=== PATIENT | female | born 1965 | race American Indian/Alaskan Native ===

== ENCOUNTER 2017-05-03 07:44 | Emergency (ER) | payer MEDICAID ==
[2017-05-03 08:32] LABS: Hematocrit 42.5 % (30.3-42.9); Hemoglobin 14.3 gm/dl (10.1-14.3); Mean Corpuscular HGB Conc 34 % (30-34); Mean Corpuscular Hemoglobin 33 pg (28-32); Mean Corpuscular Volume 99 fl (79-97); Platelet Count 161 K/mm3 (140-440); Red Blood Count 4.29 M/mm3 (3.65-5.03); Red Cell Distribution Width 15.6 % (13.2-15.2); White Blood Count 7.5 K/mm3 (4.5-11.0)
[2017-05-03 08:42] LABS: INR 1.08 (0.87-1.13)
[2017-05-03 08:43] LABS: Partial Thromboplastin Time 24.6 Sec. (24.2-36.6)
[2017-05-03 08:47] LABS: Anion Gap 19 mmol/L; BUN/Creatinine Ratio 21; Blood Urea Nitrogen 15 mg/dL (7-17); Calcium 8.8 mg/dL (8.4-10.2); Carbon Dioxide 23 mmol/L (22-30); Chloride 102.6 mmol/L (98-107); Glucose 102 mg/dL (65-100); Potassium 4.7 mmol/L (3.6-5.0); Sodium 140 mmol/L (137-145)
--- NOTE | 2017-05-03 08:59 | XRay Report ---
FINAL REPORT EXAM: XR CHEST ROUTINE 2V HISTORY: Shortness of breath TECHNIQUE: PA and lateral chest radiographs PRIORS: None. FINDINGS: No mediastinal shift. Cardiac silhouette is mildly enlarged. Left chest port. No pneumothorax, effusion, or focal pulmonary opacity. No acute skeletal finding. IMPRESSION: Cardiomegaly with satisfactory appearance of left chest port catheter and no acute pulmonary finding identified.
[2017-05-03 09:45] LABS: Basophils % (Manual) 0 % (0.0-1.8); Blastocytes % (Manual) 0 %
[2017-05-03 09:46] LABS: Diff Status Complete; RBC Morphology Normal
[2017-05-03] MEDS ORDERED: FLONASE NS ONE (11:42)
[2017-05-03] MEDS ORDERED: TESSALON PERLES PO ONE (11:42)
[2017-05-03] MEDS ORDERED: TYLENOL PO ONE (11:42)
[2017-05-03] MEDS ORDERED: PROVENTIL IH ONE (11:42)
--- NOTE | 2017-05-03 11:43 | Emergency Department Report ---
ED General Adult HPI - General Chief complaint: Dyspnea/Respdistress Stated complaint: CHEST PAIN/COUGH Time Seen by Provider: 05/03/17 11:34 Source: patient, EMS (ems notes not available at time of chart dictation), RN notes reviewed Mode of arrival: Wheelchair Limitations: No Limitations - History of Present Illness Initial comments: This is a 52-year-old female who was previously unknown to this provider, patient has a past medical history of atrial fibrillation, and is currently on systemic anticoagulation, eliquis Patient also reports a resolve history of colon cancer, and subsequent abdominal cancer, and reports currently being on chemotherapy. Her primary emissions inspector is Dr. Bridget Slade; [phone]; [facility] Patient presents to the ER with burning chest discomfort associated with cough, mucus production and shortness of breath. The symptoms have been going on for approximately 24 hours. They are intermittent. They do not radiate anywhere, there is no exacerbating or relieving factors. Patient denies vomiting, denies diaphoresis, indicates chest burning does not radiate to the back, arms and neck. There is no leg pain, there is no leg swelling, patient endorses recent trip to [place], also endorses frequent road brakes and stops. -: Gradual, days(s) (1) Location: chest Radiation: non-radiation Quality: burning Consistency: intermittent Improves with: rest Worsens with: other (coughing) Associated Symptoms: chest pain, cough, shortness of breath, weakness - Related Data Home Medications Medication Instructions Recorded Confirmed Last Taken Apixaban [Eliquis] 5 mg PO BID 05/03/17 05/03/17 Unknown Fluticasone [Flonase] 1 spray NS QDAY 05/03/17 05/03/17 Unknown Fluticasone/Salmeterol [Advair 1 each IH Q12H 05/03/17 05/03/17 Unknown 250-50 Diskus] Levothyroxine [Synthroid] 50 mcg PO QAM 05/03/17 05/03/17 Unknown Metoprolol Tartrate 50 mg PO BID 05/03/17 05/03/17 Unknown hydrALAZINE [Apresoline TAB] 100 mg PO TID 05/03/17 05/03/17 Unknown Previous Rx's Medication Instructions Recorded Last Taken Type Acetaminophen [Tylenol Arthritis] 650 mg PO Q6HR PRN #30 tablet.er 12/23/17 Unknown Rx Albuterol Sulfate [Proair 90 mcg IH Q4HR PRN #2 aer.[email or web address] 05/03/17 Unknown Rx Respiclick] Benzonatate [Tessalon Perles] 100 mg PO Q8HR PRN #30 capsule 05/03/17 Unknown Rx Fluticasone [Flonase] 1 spray NS QDAY #1 bottle 05/03/17 Unknown Rx Allergies Allergy/AdvReac Type Severity Reaction Status Date / Time No Known Allergies Allergy Verified 05/03/17 11:43 ED Review of Systems ROS: Stated complaint: CHEST PAIN/COUGH Other details as noted in HPI ED Past Medical Hx - Past Medical History Previous Medical History?: Yes Hx Hypertension: Yes Hx Congestive Heart Failure: Yes Hx of Cancer: Yes (abd/pelvic) Hx COPD: Yes Additional medical history: Afib, Thyroid problems, gout - Surgical History Past Surgical History?: Yes Additional Surgical History: Colon resection, abd hernia surgery - Social History Smoking Status: Current Every Day Smoker Substance Use Type: Alcohol, Prescribed - Medications Home Medications: Home Medications Medication Instructions Recorded Confirmed Last Taken Type Acetaminophen [Tylenol Arthritis] 650 mg PO Q6HR PRN #30 tablet.er 05/03/17 Unknown Rx Albuterol Sulfate [Proair 90 mcg IH Q4HR PRN #2 aer.pow.ba 05/03/17 Unknown Rx Respiclick] Apixaban [Eliquis] 5 mg PO BID 05/03/17 05/03/17 Unknown History Benzonatate [Tessalon Perles] 100 mg PO Q8HR PRN #30 capsule 05/03/17 Unknown Rx Fluticasone [Flonase] 1 spray NS QDAY 05/03/17 05/03/17 Unknown History Fluticasone [Flonase] 1 spray NS QDAY #1 bottle 05/03/17 Unknown Rx Fluticasone/Salmeterol [Advair 1 each IH Q12H 05/03/17 05/03/17 Unknown History 250-50 Diskus] Levothyroxine [Synthroid] 50 mcg PO QAM 05/03/17 05/03/17 Unknown History Metoprolol Tartrate 50 mg PO BID 05/03/17 05/03/17 Unknown History hydrALAZINE [Apresoline TAB] 100 mg PO TID 05/03/17 05/03/17 Unknown History ED Physical Exam - General Limitations: No Limitations General appearance: alert, in no apparent distress - Head Head exam: Present: atraumatic, normocephalic - Eye Eye exam: Present: normal appearance, EOMI. Absent: nystagmus - ENT ENT exam: Present: normal exam, normal orophraynx, mucous membranes moist, normal external ear exam - Neck Neck exam: Present: normal inspection, full ROM - Respiratory Respiratory exam: Present: normal lung sounds bilaterally. Absent: respiratory distress - Cardiovascular Cardiovascular Exam: Present: regular rate, irregular rhythm, normal heart sounds. Absent: systolic murmur, diastolic murmur, rubs, gallop - GI/Abdominal GI/Abdominal exam: Present: soft, normal bowel sounds. Absent: distended, tenderness, guarding, rebound, rigid, pulsatile mass - Extremities Exam Extremities exam: Present: normal inspection, full ROM, normal capillary refill. Absent: pedal edema, joint swelling, calf tenderness - Back Exam Back exam: Present: normal inspection, full ROM. Absent: tenderness, CVA tenderness (R), paraspinal tenderness, vertebral tenderness - Neurological Exam Neurological exam: Present: alert, oriented X3, CN II-XII intact, normal gait, other (Extraocular movements intact. Tongue midline. No facial droop. Facial sensation intact to light touch in the V1, V2, V3 distribution bilaterally. 5 and 5 strength in 4 extremities.. Sensation is intact to light touch in 4 extremities.). Absent: motor sensory deficit - Psychiatric Psychiatric exam: Present: normal affect, normal mood - Skin Skin exam: Present: warm, dry, intact, normal color. Absent: rash ED Course Vital Signs 05/03/17 05/03/17 05/03/17 07:57 11:59 12:01 Temperature 98.2 F Pulse Rate 92 H 88 Respiratory 22 20 22 Rate Blood Pressure 182/118 Blood Pressure 161/106 [Left] O2 Sat by Pulse 97 97 99 Oximetry ED Medical Decision Making - Lab Data Result diagrams: 05/03/17 08:14 05/03/17 08:14 Vital Signs 05/03/17 05/03/17 05/03/17 07:57 11:59 12:01 Temperature 98.2 F Pulse Rate 92 H 88 Respiratory 22 20 22 Rate Blood Pressure 182/118 Blood Pressure 161/106 [Left] O2 Sat by Pulse 97 97 99 Oximetry Lab Results 05/03/17 05/03/17 05/03/17 Range/Units 08:14 08:14 08:14 WBC (4.5-11.0) K/mm3 RBC (3.65-5.03) M/mm3 Hgb (10.1-14.3) gm/dl Hct (30.3-42.9) % MCV (79-97) fl MCH (28-32) pg MCHC (30-34) % RDW (13.2-15.2) % Plt Count (140-440) K/mm3 [place] % (Auto) Add Manual Diff Total Counted Seg Neuts % (Manual) (40.0-70.0) % Band Neutrophils % % Lymphocytes % (Manual) (13.4-35.0) % Reactive Lymphs % (Man) % Monocytes % (Manual) (0.0-7.3) % Eosinophils % (Manual) (0.0-4.3) % Basophils % (Manual) (0.0-1.8) % Metamyelocytes % % Myelocytes % % Promyelocytes % % Blast Cells % % Nucleated RBC % Seg Neutrophils # Man (1.8-7.7) K/mm3 Band Neutrophils # K/mm3 Lymphocytes # (Manual) (1.2-5.4) K/mm3 Abs React Lymphs (Man) K/mm3 Monocytes # (Manual) (0.0-0.8) K/mm3 Eosinophils # (Manual) (0.0-0.4) K/mm3 Basophils # (Manual) (0.0-0.1) K/mm3 Metamyelocytes # K/mm3 Myelocytes # K/mm3 Promyelocytes # K/mm3 Blast Cells # K/mm3 WBC Morphology Hypersegmented Neuts Hyposegmented Neuts Hypogranular Neuts Smudge Cells Toxic Granulation Toxic Vacuolation Dohle Bodies Pelger-Huet Anomaly Emy Rods Platelet Estimate Clumped Platelets Plt Clumps, EDTA Large Platelets Giant Platelets Platelet Satelliting Plt Morphology Comment RBC Morphology Dimorphic RBCs Polychromasia Hypochromasia Poikilocytosis Anisocytosis Microcytosis Macrocytosis Spherocytes Pappenheimer Bodies Sickle Cells Target Cells Tear Drop Cells Ovalocytes Helmet Cells Gutierrez-Falkner Bodies [place] Rings Obie Cells Bite Cells Crenated Cell Elliptocytes Acanthocytes (Spur) Rouleaux Hemoglobin C Crystals Schistocytes Malaria parasites Rodri Bodies Hem Pathologist Commnt PT 14.6 (12.2-14.9) Sec. INR 1.08 (0.87-1.13) APTT 24.6 (24.2-36.6) Sec. D-Dimer (0-234) ng/mlDDU Sodium 140 (137-145) mmol/L Potassium 4.7 (3.6-5.0) mmol/L Chloride 102.6 (98-107) mmol/L Carbon Dioxide 23 (22-30) mmol/L Anion Gap 19 mmol/L BUN 15 (7-17) mg/dL Creatinine 0.7 (0.7-1.2) mg/dL Estimated GFR > 60 ml/min BUN/Creatinine Ratio 21 % Glucose 102 H (65-100) mg/dL Calcium 8.8 (8.4-10.2) mg/dL Troponin T < 0.010 (0.00-0.029) ng/mL NT-Pro-B Natriuret Pep 3243 H (0-900) pg/mL 05/03/17 05/03/17 05/03/17 Range/Units 08:14 12:07 12:07 WBC 7.5 (4.5-11.0) K/mm3 RBC 4.29 (3.65-5.03) M/mm3 Hgb 14.3 (10.1-14.3) gm/dl Hct 42.5 (30.3-42.9) % MCV 99 H (79-97) fl MCH 33 H (28-32) pg MCHC 34 (30-34) % RDW 15.6 H (13.2-15.2) % Plt Count 161 (140-440) K/mm3 Alger % (Auto) Ribbon Winder Add Manual Diff Complete Total Counted 100 Seg Neuts % (Manual) 72.0 H (40.0-70.0) % Band Neutrophils % 3.0 % Lymphocytes % (Manual) 5.0 L (13.4-35.0) % Reactive Lymphs % (Man) 0 % Monocytes % (Manual) 17.0 H (0.0-7.3) % Eosinophils % (Manual) 3.0 (0.0-4.3) % Basophils % (Manual) 0 (0.0-1.8) % Metamyelocytes % 0 % Myelocytes % 0 % Promyelocytes % 0 % Blast Cells % 0 % Nucleated RBC % Not Reportable Seg Neutrophils # Man 5.4 (1.8-7.7) K/mm3 Band Neutrophils # 0.2 K/mm3 Lymphocytes # (Manual) 0.4 L (1.2-5.4) K/mm3 Abs React Lymphs (Man) 0.0 K/mm3 Monocytes # (Manual) 1.3 H (0.0-0.8) K/mm3 Eosinophils # (Manual) 0.2 (0.0-0.4) K/mm3 Basophils # (Manual) 0.0 (0.0-0.1) K/mm3 Metamyelocytes # 0.0 K/mm3 Myelocytes # 0.0 K/mm3 Promyelocytes # 0.0 K/mm3 Blast Cells # 0.0 K/mm3 WBC Morphology Not Reportable Hypersegmented Neuts Not Reportable Hyposegmented Neuts Not Reportable Hypogranular Neuts Not Reportable Smudge Cells Not Reportable Toxic Granulation Not Reportable Toxic Vacuolation Not Reportable Dohle Bodies Not Reportable Pelger-Huet Anomaly Not Reportable Emy Rods Not Reportable Platelet Estimate Not Reportable Clumped Platelets Not Reportable Plt Clumps, EDTA Not Reportable Large Platelets Not Reportable Giant Platelets Not Reportable Platelet Satelliting Not Reportable Plt Morphology Comment Not Reportable RBC Morphology Normal Dimorphic RBCs Not Reportable Polychromasia Not Reportable Hypochromasia Not Reportable Poikilocytosis Not Reportable Anisocytosis Not Reportable Microcytosis Not Reportable Macrocytosis Not Reportable Spherocytes Not Reportable Pappenheimer Bodies Not Reportable Sickle Cells Not Reportable Target Cells Not Reportable Tear Drop Cells Not Reportable Ovalocytes Not Reportable Helmet Cells Not Reportable Gutierrez-Falkner Bodies Not Reportable [place] Rings Not Reportable Inlet Cells Not Reportable Bite Cells Not Reportable Crenated Cell Not Reportable Elliptocytes Not Reportable Acanthocytes (Spur) Not Reportable Rouleaux Not Reportable Hemoglobin C Crystals Not Reportable Schistocytes Not Reportable Malaria parasites Not Reportable Rodri Bodies Not Reportable Hem Pathologist Commnt No PT (12.2-14.9) Sec. INR (0.87-1.13) APTT (24.2-36.6) Sec. D-Dimer 141.21 (0-234) ng/mlDDU Sodium (137-145) mmol/L Potassium (3.6-5.0) mmol/L Chloride (98-107) mmol/L Carbon Dioxide (22-30) mmol/L Anion Gap mmol/L BUN (7-17) mg/dL Creatinine (0.7-1.2) mg/dL Estimated GFR ml/min BUN/Creatinine Ratio % Glucose (65-100) mg/dL Calcium (8.4-10.2) mg/dL Troponin T < 0.010 (0.00-0.029) ng/mL NT-Pro-B Natriuret Pep (0-900) pg/mL - EKG Data -: EKG Interpreted by Me - EKG Data 05/03/17 12:48 EKG #1 demonstrates atrial fibrillation, 95 beats minute, normal axis, QTC prolonged, poor R progression, not morphologically consistent with ST elevation myocardial infarction, EKG #2 appears to be unchanged. - Radiology Data Radiology results: report reviewed, image reviewed Referring Physician: LEONARDO CABA Patient Name: TIFF BROCK Date of : 1965 Sex: Female Report Date: 2017-05-03 Report Status: Finalized Findings [address] [address] XRay Report Signed Patient: TIFF BROCK MR#: [id number] : 1965 Acct:[id number] Age/Sex: 52 / F ADM Date: 05/03/17 Loc: ED Attending Dr: Ordering Physician: LEONARDO CABA MD Date of Service: 05/03/17 Procedure(s): XR chest routine 2V Accession Number(s): [id number] cc: LEONARDO CABA MD Fluoro Time In Minutes: FINAL REPORT EXAM: XR CHEST ROUTINE 2V HISTORY: Shortness of breath TECHNIQUE: PA and lateral chest radiographs PRIORS: None. FINDINGS: No mediastinal shift. Cardiac silhouette is mildly enlarged. Left chest port. No pneumothorax, effusion, or focal pulmonary opacity. No acute skeletal finding. IMPRESSION: Cardiomegaly with satisfactory appearance of left chest port catheter and no acute pulmonary finding identified. Transcribed By: MB Dictated By: HALLE TORRES MD Electronically Authenticated By: HALLE TORRES MD Signed Date/Time: 05/03/17455 DD/ 5 - Medical Decision Making Differential diagnosis, including but not limited to: Pulmonary embolus, acute coronary syndrome, congestive heart failure, bronchitis, pneumonia Assessment and plan: 52-year-old female, low risk by INGRSI score, low risk by heart score, troponin negative 2, patient versus a negative stress test within the past 2 months, I attempted to contacted her private emissions inspector, however Dr. Bridget Byrd she was not in the office. I did speak to her covering colleague Dr. Saab who was not able to access the patient's medical records because the office is closed. D-dimer negative, low risk by well's criteria, therefore think pulmonary embolus is very unlikely. Elevated BNP is appreciated, however patient has no crackles, rales or JVD, therefore her clinical presentation is not consistent with acute decompensated congestive heart failure. Patient felt improved after symptomatic therapy, and the covering emissions inspector indicated that the patient can follow up with himself or her primary emissions inspector next week on Friday or Friday. Patient most likely has bronchitis, she is at low risk for major adverse cardiac event, and she will be discharged at this time, return precautions are reviewed.; Critical care attestation.: If time is entered above; I have spent that time in minutes in the direct care of this critically ill patient, excluding procedure time. ED Disposition Clinical Impression: Bronchitis Disposition: DC-01 TO HOME OR SELFCARE Is pt being admited?: No Does the pt Need Aspirin: No Condition: Stable Instructions: Acute Bronchitis (ED) Additional Instructions: Take the medications as needed/directed. Continue your current outpatient medications. Follow up next week, Friday or Friday with any of the local listed cardiology offices, or follow-up with her primary emissions inspector: Gabi Slade MD [employer] 4[employer]3 6 [employer] Doctor in [place], [place] Address: [address], [place] [address] Hours: Closed today Return to the ER underwent with new pain, worsened pain, migration of pain, fevers, chills, lethargy, irritability, projectile vomiting, change in mental status, confusion, inability to tolerate liquid feeds. Referrals: HALLE DONNELLY MD [Primary Care Provider] - 3-5 Days [facility] [Provider Group] - 3-5 Days [facility] [place] [Provider Group] - 3-5 Days
[2017-05-03 13:32] VITALS: BP 161/104
== END 2017-05-03 13:32 | disposition home or self-care (01) ==
LOC: ED 07:44
DX: J40 Bronchitis, not specified as acute or chronic (principal); I10 Essential (primary) hypertension; I50.9 Heart failure, unspecified; J44.9 Chronic obstructive pulmonary disease, unspecified; I48.91 Unspecified atrial fibrillation; F17.200 Nicotine dependence, unspecified, uncomplicated; Z85.53 Personal history of malignant neoplasm of renal pelvis
CPT/HCPCS: 36415; 71020; 80048; 83880; 84484; 85007; 85025; 85379; 85610; 85730; 93005; 93010; 94640; 99284